=== PATIENT | female | born 1945 | race African-American/Black ===

== ENCOUNTER → 2017-06-22 | Day surgery (SDC) | payer MEDICARE ==
[~2017-06-22] MED LIST: LIDOCAINE 2% JELLY 5 ML TUBE ONE
== END ==
LOC: END 06:38
PROVIDERS: ATTEND Specialist
PROC: 4A0B7BZ Measurement of Gastrointestinal Pressure, Via Natural or Artificial Opening (ICD-10-PCS; principal; 2017-06-22)
PROC: 4A0B78Z Measurement of Gastrointestinal Motility, Via Natural or Artificial Opening (ICD-10-PCS; 2017-06-22)
DX: K44.9 Diaphragmatic hernia without obstruction or gangrene (principal); K21.9 Gastro-esophageal reflux disease without esophagitis
CPT/HCPCS: 91010; 91034